=== PATIENT | male | born 1985 | race Caucasian/White ===

== ENCOUNTER 2017-02-09 09:15 | Emergency (ER) | payer OTHER ==
--- NOTE | 2017-02-09 11:01 | UC ---
key Sierra Timothy, scribed for Concha Chi MD on 02/09/17 at 1044 . Skin Complaint HPI - HPI Summary HPI Summary: Gilmer Murguia is a 31 yo male presenting to [facility] with a red ring on his right back since yesterdayy his while swimming. pt states was red, circular, approx 3cm. Pt concerned could be lyme disease although denies any know tick bite or exposure. He states that he has spent some time mowing his lawn in long grass, but has not seen any ticks. He states last week he felt very bloated , but has a Hx of such episodes. He denies any other rashes. No fever, chills No neal, nausea, no joint pain. No discomfort Not immunocompromised. He is not in any current pain. His MHx includes facial cyst, pinideal cyst, melanoma. Pt medication list reviewed this visit. - History of Current Complaint Chief Complaint: UCSkin Time Seen by Provider: 02/09/17 10:43 Stated Complaint: TICK BITE Hx Obtained From: Patient Onset/Duration: Sudden Onset, Lasting Hours, Still Present Skin Exposure Onset/Duration: Hours Ago Timing: Constant Onset Severity: Moderate Current Severity: Moderate Pain Intensity: 0 Pain Scale Used: 0-10 Numeric Location: Other - right side of back Character: Redness Associated Signs & Symptoms: Positive: Rash - Allergy/Home Medications Allergies/Adverse Reactions: Allergies Allergy/AdvReac Type Severity Reaction Status Date / Time Adhesive Tape Allergy Hives Verified 06/15/16 11:41 Review of Systems Constitutional: Negative Skin: Rash - right upper back noted yesterday Eyes: Negative ENT: Negative Respiratory: Negative, Other Cardiovascular: Negative Gastrointestinal: Other - "bloated" Genitourinary: Negative Motor: Negative Neurovascular: Negative Musculoskeletal: Negative Neurological: Negative Psychological: Negative All Other Systems Reviewed And Are Negative: Yes PMH/Surg Hx/FS Hx/Imm Hx Previously Healthy: Yes - Surgical History Surgical History: Yes Surgery Procedure, Year, and Place: CYST - FACIAL & PINIDEAL - REMOVED. MOLE- REMOVED - [place] - Family History Known Family History: Positive: Hypertension Negative: Cardiac Disease, Diabetes - Social History Occupation: Employed Full-time Lives: With Family Alcohol Use: Rare Substance Use Type: None Smoking Status (MU): Never Smoked Tobacco Physical Exam Triage Information Reviewed: Yes Appearance: Well-Appearing, No Pain Distress, Well-Nourished Vital Signs: Initial Vital Signs Temp 98.4 F 02/09/17 09:19 Pulse 66 02/09/17 09:19 Resp 16 02/09/17 09:19 Pulse Ox 100 02/09/17 09:19 Vital Signs Reviewed: Yes Eye Exam: Normal Eyes: Positive: Conjunctiva Clear ENT Exam: Normal ENT: Positive: Hearing grossly normal, TMs normal Dental Exam: Normal Neck exam: Normal Neck: Positive: Supple Respiratory Exam: Normal Respiratory: Positive: Chest non-tender, Lungs clear Cardiovascular Exam: Normal Cardiovascular: Positive: RRR, No Murmur, Pulses Normal Abdomen Description: Positive: Nontender, No Organomegaly, Soft. 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 No visible rash on today's exam. pt inquired regarding tick - no known tick exposure. No central clearing. Reassurance and education regarding lymes. return prn. Pt comfortable with plan - Differential Diagnoses - Skin Complaint Differential Diagnoses: Tick Born Illness - Diagnoses Provider Diagnoses: rash Discharge - Discharge Plan Condition: Stable Disposition: HOME Patient Education Materials: Acute Rash (ED) Referrals: El BROOKS,Lane Chaves [Primary Care Provider] - If Needed Additional Instructions: The doctor that evaluated you today did not see a rash or identify anything concerning on your exam You had a lyme disease lab test drawn today - if it reveals lyme disease you will receive a call from a care steam service inspector If your rash returns, take a photograph Schedule a follow-up appointment with your primary care provider. Contact your doctor or return with questions or concerns The documentation as recorded by the key farrell Timothy accurately reflects the service I personally performed and the decisions made by , Concha Chi MD.
== END 2017-02-09 11:00 | disposition home or self-care (01) ==
LOC: UCEAST 09:15
DX: R21 Rash and other nonspecific skin eruption (principal)
CPT/HCPCS: 86618; 99211; G0463